=== PATIENT | male | born 1970 | race Caucasian/White ===

== ENCOUNTER 2025-08-17 06:09 | Emergency (ER) | payer OTHER ==
[2025-08-17 06:22] LABS: #Basophils 0.1 thou/uL (0.0-0.2); #Eosinophils 0.2 thou/uL (0.0-0.7); #Lymphocytes 1.7 thou/uL (1.20-3.40); #Monocytes 0.8 thou/uL (0.11-0.59); #Neutrophils 5.8 thou/uL (1.40-6.50); %Basophils 1.7 % (0.0-1.0); %Eosinophils 1.9 % (0.0-10.0); %Lymphocytes 19.2 % (21.0-51.0); %Monocytes 9.2 % (0.0-10.0); %Neutrophils 68.0 % (42.0-75.0); Hematocrit 42.7 % (42.0-52.0); Hemoglobin 14.8 g/dL (14.0-18.0); Mean Corpuscular Hemoglobin 29.6 pg (27.0-31.0); Mean Corpuscular Volume 85.3 fl (78.0-98.0); Platelet Count 255 10x3/uL (130-400); Red Blood Cell (RBC) Count 5.00 mill/uL (4.70-6.10); White Blood Cell (WBC) Count 8.6 10x3/uL (4.8-10.8)
[2025-08-17 06:30] LABS: INR-International Normal Ratio 1.0; PTT 28.4 sec (22.9-36.1); Prothrombin Time 13.0 sec (12.0-14.7)
[2025-08-17 06:38] LABS: ALT (SGPT) 18 U/L (Less than 45); AST (SGOT) 31 U/L (11-34); Albumin 4.0 g/dL (3.1-4.5); Alkaline Phosphatase 68 U/L (40-110); Anion Gap 15 mmol/L (10-20); BUN (Urea Nitrogen) 14 mg/dL (8.4-25.7); Bilirubin, Total 0.5 mg/dL (0.3-1.2); Calc. Creatinine Clearance 0 mL/min (70-130); Calcium 8.8 mg/dL (7.8-10.44); Carbon Dioxide 21 mmol/L (22-29); Chloride 106 mmol/L (98-107); Globulin 3.5 g/dL (2.4-3.5); Glucose 108 mg/dL (70-105); Potassium 4.0 mmol/L (3.5-5.1); Sodium 138 mmol/L (136-145)
[2025-08-17 06:39] LABS: Acetaminophen Less than 10 mcg/mL (Less than 10); Salicylate Less than 8.0 mg/dL (Less than 8.0)
[2025-08-17] MEDS ORDERED: Iopamidol 370 76% 100 ML VIAL ONE (09:00)
== END 2025-08-17 10:25 | disposition short-term general hospital (02) ==
LOC: NAV ERS 06:09 → EEVIPCON 06:09 → NAV ERS 10:25
DX: I63.9 Cerebral infarction, unspecified (principal); I25.2 Old myocardial infarction; I10 Essential (primary) hypertension; I25.10 Atherosclerotic heart disease of native coronary artery without angina pectoris; Z79.82 Long term (current) use of aspirin; Z79.899 Other long term (current) drug therapy
CPT/HCPCS: 36415; 70450; 70486; 70496; 70498; 72125; 80053; 80307; 85025; 85610; 85730; 93005; 94760; 96374; J2272; Q9967